=== PATIENT | male | born 1945 | race Caucasian/White ===

== ENCOUNTER 2016-07-13 09:47 | Emergency (ER) | payer OTHER, MEDICARE ==
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
[2016-07-13 10:14] LABS: Urine Bilirubin Negative (NEGATIVE); Urine Ketone Negative (NEGATIVE); Urine Nitrite Negative (NEGATIVE); Urine Protein 15 mg/dL (NEGATIVE); Urine Specific Gravity >=1.030 SP.GR. (1.005-1.030); Urine Urobilinogen Normal (NORMAL); Urine pH 5.5 pH (5.0-7.0)
[2016-07-13 10:27] LABS: Urine Appearance Clear; Urine Bacteria None Seen; Urine Blood 5 /ul (NEGATIVE); Urine Color Yellow; Urine RBC 0-5 /hpf (0-5); Urine WBC None Seen /hpf (0-5)
[2016-07-13] MEDS ORDERED: NORMAL SALINE 1,000 ML IV ONE (10:43)
[2016-07-13] MEDS ORDERED: HYDROmorphone HCL 1 MG/ML DISP.SYRIN IV ONE (10:43)
[2016-07-13] MEDS ORDERED: HYDROmorphone HCL 1 MG/ML DISP.SYRIN ONE (10:44)
[2016-07-13 10:55] LABS: Hematocrit 39.2 % (42.0-52.0); Hemoglobin 14.6 gm/dL (13.5-18.0); Mean Cell Volume 90.5 fl (78-100); Mean Corpuscular Hemoglobin 33.7 pg (27-31); Mean Corpuscular Hgb Conc 37.2 g/dl (32-36); Mean Platelet Volume 11.6 fl (6.0-9.5); Neutrophil # 6.1 K/mm3 (1.3-6.0); Neutrophil % 67.8 % (42-75.0); Platelet Count 226 K/mm3 (150-450); Red Blood Count 4.33 M/mm3 (4.7-6.0); Red Cell Distribution Width 12.1 % (11.5-14.0)
[2016-07-13 11:11] LABS: BUN/Creatinine Ratio 17.8 (9.0-21.6); Bilirubin, Total 0.7 mg/dL (0.0-1.1); Ca. Corrected For Albumin 8.9 mg/dL (8.4-10.2); Calcium * 9.2 mg/dL (7.9-10.9); Potassium 5.5 mmol/L (3.4-4.6); Total Protein 7.5 gm/dL (6.2-8.2)
[2016-07-13 11:21] LABS: Anion Gap 18.3 mmol/L (6.8-13.8); Carbon Dioxide 21.2 mmol/L (24-32.6)
[2016-07-13] MEDS ORDERED: CIPROFLOXACIN LACTATE/D5W 400 MG/200 ML BAG IV SCH (12:15)
--- NOTE | 2016-07-13 12:24 | ERNOTE ---
Medical Problem HPI - Narrative Date of Service: 07/13/16 - General Chief Complaint: General Assessment Time Seen by Provider: 07/13/16 10:05 Source: patient Exam Limitations: no limitations - Immun/Allergies/Home Medications Immunizations: IMMUNIZATION HX Immunizations Up to Date Yes History of Influenza Vaccine Yes Hx Pneumococcal Vaccination Yes Allergies/Adverse Reactions: Allergies No Known Allergies Allergy (Verified 07/13/16 10:03) Home Medications: HOME MEDICATIONS Aspirin 01/15/12 [Last Taken Unknown] B-12 01/15/12 [Last Taken Unknown] Insulin Aspart 01/15/12 [Last Taken Unknown] Lipitor 01/15/12 [Last Taken Unknown] Lisinopril 01/15/12 [Last Taken Unknown] Metoprolol Succinate 01/15/12 [Last Taken Unknown] Percocet 10-325 mg Tablet 01/15/12 [Last Taken Unknown] Prilosec 01/15/12 [Last Taken Unknown] Vitamin D 01/15/12 [Last Taken Unknown] Sulfamethoxazole/Trimethoprim [Bactrim Ds] 1 tab PO BID #20 tab 07/13/16 [Last Taken Unknown] - History of Present History Narrative: 71-year-old male presenting to the emergency room for left lower back pain and lower abdominal pain. Patient states that this pain started a few days ago and has not gotten better. Date (Duration): 07/13/16 Timing: getting worse Severity: mild Review of Systems - Narrative Narrative: states he has dysuria this am - Review of Systems Constitutional: Present: See HPI, malaise EYE: Present: no symptoms reported ENT: Present: no symptoms reported Respiratory: Present: no symptoms reported Cardiology: Present: no symptoms reported Gastrointestinal/Abdominal: Present: no symptoms reported Genitourinary: Present: See HPI, dysuria Musculoskeletal: Present: See HPI, back pain Skin: Present: no symptoms reported Neurological: Present: no symptoms reported Endocrine: Present: no symptoms reported Hematologic/Lymphatic: Present: no symptoms reported Psych: Present: no symptoms reported All Other Systems: All systems neg except as marked - Patient's Past Medical History Patient History - Medical: Diabetes Type 2 Insulin Dependent, Depression, GERD, Renal Failure Patient History - Cardiac/Respiratory: Hypertension Patient History - Cancer: No Hx of Cancer Patient History - Surgical Procedures: Cardiac stent Patient History - Other: None - Social History Living Situations: alone Abuse History: No History of abuse Psych History: Hx of Depression Smoking Status: Never smoker Have you smoked in the past 12 months: No Do you dip or chew tobacco: Yes Alcohol Use: occasionally Drug Use: none - Immunizations Immunizations Up to Date: Yes Hx Pneumococcal Vaccination: Yes History of Influenza Vaccine: Yes Physical Exam - Physical Exam Narrative: patient appears healthy and in some discomfort during exam. positive left CVA tenderness. General Appearance: Present: wd/wn, alert, mild distress Eye Exam: Normal inspection: bilateral Ears, Nose, Throat: Present: normal ENT inspection, normal pharynx Neck: Present: normal inspection, nontender Respiratory: Present: no respiratory distress, normal breath sounds, no accessory muscle use, lungs clear Cardiovascular/Chest: Present: regular rate, rhythm, no murmur, normal peripheral pulses Gastrointestinal/Abdominal: Present: normal bowel sounds, soft Back Exam: Present: no vertebral tenderness, CVA tenderness (L). Absent: CVA tenderness (R) Extremity Exam: Present: normal inspection, non-tender, normal range of motion, no edema Neurological Exam: Present: alert, oriented, normal mood/affect, no motor/ sensory deficits Skin Exam: Present: normal color, warm/dry Lymphatic Exam: Present: no adenopathy ED Progress - Results and Orders Patient's Lab Results:: I have reviewed the patient's lab results. Results and Orders: ua blood, glucose and ptn - Vital Signs Patient's Vital Signs:: I have reviewed the patient's vital signs. Vital Signs: Vital Signs 07/13/16 07/13/16 07/13/16 09:55 11:14 11:59 Temperature 36.6 C Pulse Rate 72 70 60 Respiratory 16 18 16 Rate Blood Pressure 162/90 O2 Sat by Pulse 96 95 94 Oximetry - CT/Ultrasound CT/Ultrasound Narrative: [facility] PATIENT RADIOLOGY STUDY REPORT Patient Patient Name:STEVE GROVES Date: 1945 Sex: M Order Number: [id number] Unique Exam ID: [id number] Exam Requested: [id number] - CT Abdomen/Pelvis W/O Contrast Date Scheduled: Study Priority: Requesting Service: Requesting Physician: Hussain Hare Reason for Exam: pos stone, hematuria Radiological Report : Exam Date: 07/13/2016 10:41 Ordering Physician: Hussain Hare HISTORY: pos stone, hematuria . Additional history from technologist: Left-sided flank pain and groin pain for 2 days. Hematuria. History of kidney stones diagnosed 15 years ago. TECHNIQUE: Multiple noncontrast axial CT images of the abdomen and pelvis obtained from the top of the diaphragm to the level of the pubic symphysis according to our renal stone CT protocol. Coronal reconstructions were also submitted. COMPARISON: 03/04/2011 FINDINGS: CT Abdomen/Pelvis W/O Contrast ABDOMEN: The examination is overall limited by noncontrast CT technique. Potential parenchymal tumor or acute vascular process such as aortic dissection or thrombosis of a vascular structure would be difficult to exclude. Right kidney: No obvious mass. There is a 1.9 cm cyst in the upper pole, which has slightly decreased in size in comparison with the prior study. No definite signs of intrarenal calcifications. No hydronephrosis. There is mild perinephric stranding, stable. No evidence for ureteral stone or dilation. Left kidney: No obvious mass. No definite signs of intrarenal calcifications. No hydronephrosis. There is mild perinephric stranding, grossly stable. No evidence for ureteral stone or dilation. Lung bases: There is a peripheral linear scarring of the right lower lobe in the right middle lobe adjacent to rib fractures, suggestive of scarring. Visualized portions of the heart demonstrate coronary arterial vascular calcifications. No significant pericardial effusion. Liver: Unremarkable. Gallbladder: Calcified gallstones are seen at the gallbladder neck, and potentially within the cystic duct (series 3 image 35). There is no evidence for gallbladder distention or adjacent inflammatory changes. Pancreas: Unremarkable. Spleen: Calcified granulomas present. Adrenal glands: Unremarkable. Aorta: Atherosclerotic mural calcifications noted without abnormal dilation. maximal diameter of the infrarenal segment is 1.7 cm. Retroperitoneum: Unremarkable. Stomach: There may be a sliding-type hiatal hernia. Small bowel: Unremarkable. Large bowel: Diverticulosis of the descending and sigmoid colonic segments noted. There is bowel wall prominence of the descending and sigmoid colon, without definite signs of adjacent inflammatory changes. There is stool retention noted within the more proximal segments of the colon.. Normal caliber appendix visualized , best seen on series 3 image 97-103, with small punctate appendicoliths, without definite signs of adjacent inflammatory changes. Abdominal wall: There is a small fat-containing umbilical hernia. There is soft tissue stranding in the left side of the anterior abdominal wall subcutaneous fat, seen best on series 3 image 76, with similar findings seen previously although it has increased in density and prominence, measuring approximately 2.2 cm transverse by 1.0 cm in thickness, and on series 4 image 6 measures approximately 1.7 cm in length. This lesion is located approximately 7.5 cm lateral to the umbilicus on the left side, and approximately 2-3 cm above the level of the umbilicus (see series 4 image 6). Patient also has small fat-containing umbilical hernias bilaterally. No definable intraperitoneal free air noted. PELVIS: Bladder: There is diffuse urinary bladder wall thickening. There is no definite signs of calcification or gas. Prostate: Prostate enlargement is noted, measuring 3.0 cm AP x 4.6 cm transverse x 3.8 cm longitudinal. No free fluid or fluid collection. No pelvic mass or lymphadenopathy. Bones: Appears intact. Multilevel degenerative changes of the thoracolumbar spine noted. Multiple right-sided old rib fractures are noted. There may be a deformity of the left femoral head/neck, suggestive of an old fracture. IMPRESSION: 1. No evidence of renal stones or obstructive uropathy. Nonspecific bilateral perinephric fat stranding. Consider pyelonephritis. 2. Bowel wall thickening of the descending and sigmoid colon also affected by diverticular outpouchings but without definite signs of adjacent inflammatory changes. Most likely this is artifactual from nondistention but consider colitis or diverticulitis. Potential colonic mass would be difficult to exclude and consider further evaluation of the colon as clinically indicated. 3. Soft tissue density abnormality seen within the left side of the anterior abdominal wall subcutaneous fat as discussed above. Correlate clinically for any palpable abnormality. Consider hematoma versus focal fat necrosis from previous injury or chronic injection site, versus potential neoplasm. 4. Diffuse nonspecific urinary bladder wall thickening. Consider cystitis or diffuse presentation of bladder tumor. 5. Prostate enlargement, nonspecific. 6. Calcified gallstones within the gallbladder neck and potentially within the cystic duct. 7. Potential tiny appendicoliths within noninflammatory nondilated appendix. Additional comments and limitations are as above. Electronically signed by Cande Smith M.D.. Approved by: Approval Date: 07-13-2016 Approval Time: 11:37 AM THIS REPORT WAS RECEIVED FROM THE [employer] SYSTEM - Progress/Reassessment Chief Complaint: General Assessment Progress:: Improved Plan - Plan Plan: patient is to follow up with urology and for a colonoscopy r/t CT findings. Patient aware of CT findings. Departure - Departure Clinical Impression: Pyelonephritis Disposition: Home Follow Up Needed Condition: Stable Instructions: Pyelonephritis, Adult, Flank Pain, [id number] Additional Instructions: Continue any previous home medications as directed. Follow up with your primary care provider in the next 2-3 days. Please make sure you make appointments with the urologist and the general surgeon for colonoscopy. Return to the emergency room if symptoms persist or become worse. Referrals: Chandrakant Brown MD [Associate] - Brian Sandoval MD [Associate] - Prescriptions: Sulfamethoxazole/Trimethoprim [Bactrim Ds] 1 tab PO BID #20 tab
[2016-07-13 14:16] VITALS: BP 148/81
== END 2016-07-13 12:55 | disposition home or self-care (01) ==
LOC: ER 09:47
DX: N12 Tubulo-interstitial nephritis, not specified as acute or chronic (principal)